=== PATIENT | female | born 1960 | race Caucasian/White ===

== ENCOUNTER → 2017-05-11 | Outpatient (CLI) | payer MEDICARE, OTHER ==
--- NOTE | 2017-05-11 14:19 | CT ---
EXAMINATION TYPE: CT sinus wo con DATE OF EXAM: 05/11/2017 COMPARISON: NONE HISTORY: Chronic sinusitis CT DLP: 630 mGycm. Automated Exposure Control for Dose Reduction was Utilized. TECHNIQUE: CT scan of the sinuses is performed without contrast, axial images are obtained, coronal r eformatted images are also reviewed. FINDINGS: The paranasal sinuses including the frontal, ethmoid, sphenoid, and maxillary sinuses bila terally are well-aerated minimal ethmoidal mucosal thickening. The ostiomeatal complex is patent kendra aterally on the coronal images. Bilateral gabrielle bullosa noted. Visualized portion of mastoid air cells show no abnormal opacification. The globes are intact bilate rally. IMPRESSION: 1. Minimal chronic ethmoidal sinusitis.
== END | disposition home or self-care (01) ==
LOC: RADCTMAIN 12:00
PROVIDERS: ATTEND Family Medicine
DX: J32.2 Chronic ethmoidal sinusitis (principal)
CPT/HCPCS: 70486

== ENCOUNTER → 2017-05-24 | Outpatient (CLI) | payer MEDICARE, OTHER ==
--- NOTE | 2017-05-24 15:59 | XR ---
EXAMINATION TYPE: XR cervical spine limited DATE OF EXAM: 05/24/2017 COMPARISON: NONE HISTORY: Pain TECHNIQUE: 3 views are submitted. FINDINGS: The odontoid is intact. There are no compression deformities. The prevertebral soft tissue structur es are within normal limits. Severe degenerative disc disease C5-C6 with moderate to severe changes C4-5 and C6-C7. Facet arthropathy at multiple levels. IMPRESSION: 1. Multilevel moderate to severe degenerative disc disease consider MRI follow-up..
--- NOTE | 2017-05-24 16:00 | XR ---
EXAMINATION TYPE: XR thoracic spine 2V DATE OF EXAM: 05/24/2017 COMPARISON: NONE HISTORY: Chronic pain Alignment is anatomic. There is no compression deformities. Hypertrophic changes are seen anteriorly at all levels. There is mild multilevel degenerative disc disease. Slight curvature the spine may be positional. IMPRESSION: 1. Mild multilevel degenerative disc disease.
--- NOTE | 2017-05-24 16:01 | XR ---
EXAMINATION TYPE: XR pelvis AP view DATE OF EXAM: 05/24/2017 COMPARISON: NONE HISTORY: Chronic pain The osseous structures are intact and the joint spaces are preserved. No acute fracture is seen. Vi sualized bowel gas pattern is nonspecific. Hypertrophy of the acetabulum noted. IMPRESSION: 1. No acute fracture. 2. 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
== END | disposition home or self-care (01) ==
LOC: RADXRMAIN 15:36
PROVIDERS: ATTEND Chiropractor
DX: M50.322 Other cervical disc degeneration at C5-C6 level (principal); M51.34 Other intervertebral disc degeneration, thoracic region; M12.859 Other specific arthropathies, not elsewhere classified, unspecified hip; M99.01 Segmental and somatic dysfunction of cervical region; M99.02 Segmental and somatic dysfunction of thoracic region; M99.03 Segmental and somatic dysfunction of lumbar region
CPT/HCPCS: 72040; 72070; 72170

== ENCOUNTER 2017-06-29 15:55 | Emergency (ER) | payer MEDICARE, OTHER ==
[2017-06-29 17:21] LABS: Appearance,Urine Clear (Clear); Bilirubin,Urine Negative (Negative); Blood,Urine Negative (Negative); Color,Urine Yellow; Glucose,Urine (UA) Negative (Negative); Ketones,Urine Negative (Negative); Leukocyte Esterase,Urine Negative (Negative); Nitrite,Urine Negative (Negative); PH, Urine 5.5 (5.0-8.0); Protein,Urine Negative (Negative); Urobilinogen,Urine <2.0 mg/dL (<2.0)
--- NOTE | 2017-06-29 17:37 | XR ---
EXAMINATION TYPE: XR lumbar spine 2 or 3V DATE OF EXAM: 06/29/2017 COMPARISON: NONE HISTORY: Low back pain TECHNIQUE: 3 views FINDINGS: Vertebra have fairly normal spacing and alignment. Posterior loose are intact. There is mil d atheromatous change in the abdominal aorta. Sacroiliac joints appear intact. IMPRESSION: Negative lumbar spine exam. No fracture.
[2017-06-29] MEDS ORDERED: IBUPROFEN 600 MG TAB PO STA (17:38)
--- NOTE | 2017-06-29 17:50 | ED ---
General Adult HPI - General Chief complaint: Back Pain/Injury Stated complaint: Back Pain Time Seen by Provider: 06/29/17 16:45 Source: patient, RN notes reviewed Mode of arrival: ambulatory Limitations: language barrier - History of Present Illness Initial comments: Patient is a 56-year-old female who presents emergency room today with a chief complaint of low back pain. Patient does admit that there is no specific injury or trauma. States as the day is gone she's been having increased pain or back. Denies any saddle anesthesia. Denies any lumbar radiculopathy. Patient does be to history of some low back pain. She states she's also had infections before. She states she is worried about crystals in her urine. Patient doesn't certain movements. She states not taken anything for pain today. She denies any other complaints or associated symptoms. Patient denies any recent fever, chills, shortness of breath, chest pain, abdominal pain, nausea or vomiting, numbness or tingling, dysuria or hematuria, constipation or diarrhea, headaches or visual changes, or any other complaints. - Related Data Home Medications Medication Instructions Recorded Confirmed Apixaban [Eliquis] 2.5 mg PO BID 06/29/17 06/29/17 Carvedilol [Coreg] 3.125 mg PO BID 06/29/17 06/29/17 PARoxetine HCL [Paxil] 30 mg PO DAILY 06/29/17 06/29/17 lamoTRIgine [LaMICtal] 25 mg PO BID 06/29/17 06/29/17 lamoTRIgine [LaMICtal] 100 mg PO BID 06/29/17 06/29/17 Previous Rx's Medication Instructions Recorded Cyclobenzaprine [Flexeril] 10 mg PO TID #20 tab 06/29/17 Ibuprofen [Motrin] 600 mg PO Q6HR PRN #40 day 06/29/17 Allergies Allergy/AdvReac Type Severity Reaction Status Date / Time Penicillins Allergy Anaphylaxis Verified 06/29/17 16:16 Review of Systems ROS Statement: Those systems with pertinent positive or pertinent negative responses have been documented in the HPI. ROS Other: All systems not noted in ROS Statement are negative. Past Medical History Past Medical History: Atrial Fibrillation, CVA/TIA, Hypertension History of Any Multi-Drug Resistant Organisms: None Reported Past Surgical History: No Surgical Hx Reported Additional Past Surgical History / Comment(s): cataract Past Psychological History: Anxiety Smoking Status: Never smoker Past Alcohol Use History: None Reported Past Drug Use History: None Reported General Exam - General Exam Comments Initial Comments: General: The patient is awake and alert, in no distress, and does not appear acutely ill. Eye: Pupils are equal, round and reactive to light, extra-ocular movements are intact. No nystagmus. There is normal conjunctiva bilaterally. No signs of icterus. Ears, nose, mouth and throat: There are moist mucous membranes and no oral lesions. Neck: The neck is supple, there is no tenderness or JVD. Cardiovascular: There is a regular rate and rhythm. No murmur, rub or gallop is appreciated. Respiratory: Lungs are clear to auscultation, respirations are non-labored, breath sounds are equal. No wheezes, stridor, rales, or rhonchi. Musculoskeletal: Normal appearance of the thoracic, lumbar spine with no step- offs forms. Patient has no tenderness midline. His have paravertebral tenderness lower lumbar from L4-L5 bilaterally. Pain reproduced with movements or twisting turning. Strength 5/5. Sensation intact. Pulses equal bilaterally 2 +. Neurological: A&O x 3. CN II-XII intact, There are no obvious motor or sensory deficits. Coordination appears grossly intact. Speech is normal. Skin: Skin is warm and dry and no rashes or lesions are noted. Psychiatric: Cooperative, appropriate mood & affect, normal judgment. Limitations: language barrier Course Vital Signs 06/29/17 16:08 Temperature 98.7 F Pulse Rate 101 H Respiratory 18 Rate Blood Pressure 116/74 O2 Sat by Pulse 97 Oximetry Medical Decision Making - Medical Decision Making Patient's x-ray reviewed is unremarkable. Urinalysis shows no evidence of infection. Results were discussed with the patient. Patient's pain is reproduced with certain movements. Her pain is felt to be musculoskeletal treated with muscle relaxer and anti-inflammatories. Patient is advised following up with family doctor over the next 2 days. Advised to return if symptoms increase worsen. - Lab Data Lab Results 06/29/17 Range/Units 17:10 Urine Color Yellow Urine Appearance Clear (Clear) Urine pH 5.5 (5.0-8.0) Ur Specific [place] 1.020 (1.001-1.035) Urine Protein Negative (Negative) Urine Glucose (UA) Negative (Negative) Urine Ketones Negative (Negative) Urine Blood Negative (Negative) Urine Nitrite Negative (Negative) Urine Bilirubin Negative (Negative) Urine Urobilinogen <2.0 (<2.0) mg/dL Ur Leukocyte Esterase Negative (Negative) Disposition Clinical Impression: Acute low back pain Disposition: HOME SELF-CARE Condition: Good Instructions: Acute Low Back Pain (ED) Additional Instructions: Please use medication as discussed. Please follow-up with family doctor in the next 2 days of symptoms have not improved. Please return to emergency room if the symptoms increase or worsen or for any other concerns. Prescriptions: Cyclobenzaprine [Flexeril] 10 mg PO TID #20 tab Ibuprofen [Motrin] 600 mg PO Q6HR PRN #40 day PRN Reason: Pain Referrals: Remigio Bradley MD [Primary Care Provider] - 1-2 days Time of Disposition: 17:49
[2017-06-29 23:33] VITALS: BP 118/65; PULSE 82; RESP 16; TEMP 96.9
== END 2017-06-29 17:59 | disposition home or self-care (01) ==
LOC: EC 15:55
DX: M54.5 Low back pain (principal); I48.91 Unspecified atrial fibrillation; I10 Essential (primary) hypertension; F41.9 Anxiety disorder, unspecified; Z79.01 Long term (current) use of anticoagulants; Z79.899 Other long term (current) drug therapy; Z88.0 Allergy status to penicillin
CPT/HCPCS: 72100; 81003; 87086; 99283

== ENCOUNTER 2019-01-09 07:20 | Day surgery (SDC) | payer MEDICARE, OTHER ==
[2019-01-05 13:34] VITALS: BMI 25.0
[~2019-01-09 07:20] MED LIST: LACTATED RINGERS 1,000 ML IV SCH; LIDOCAINE 1% 20 ML VIAL (10MG/ML) FOR IV START INTRADERMA PRN
[2019-01-09 07:56] VITALS: RESP 16; TEMP 97.3
[2019-01-09] MEDS ORDERED: PROPOFOL 10 MG/ML 20 ML VIAL IV ONE (08:08)
[2019-01-09] MEDS ORDERED: LIDOCAINE 1% INJ 10MG/ML (20 ML MDV) ONE (08:08)
[2019-01-09] MEDS ORDERED: GLYCOPYRROLATE 0.2 MG/ML 2 ML VIAL ONE (08:08)
--- NOTE | 2019-01-09 09:15 | P.PCN ---
Date of Procedure: 01/09/19 Description of Procedure: BRIEF HISTORY: 58-year-old female who presents for outpatient colonoscopy. The patient reports last colonoscopy was approximately 15 years ago. She reports at baseline she has 1 bowel movement daily without any blood. She did have an episode of diarrhea followed by bright red blood per rectum. No abdominal pain or family history of colon cancer reported. PROCEDURE PERFORMED: Colonoscopy with polypectomy. PREOPERATIVE DIAGNOSIS: Hematochezia, last colonoscopy 15 years ago, screening for malignant neoplasm of the colon. ESTIMATED BLOOD LOSS: Minimal. IV sedation per Anesthesia. PROCEDURE: After informed consent was obtained, the patient, was brought into the endoscopy unit. IV sedation was administered by Anesthesia under continuous monitoring. Digital rectal examination was normal. Initially the Olympus CF-190 flexible video colonoscope was then inserted in the rectum, gradually advanced into the cecum without any difficulty. Careful examination was performed as the scope was gradually being withdrawn. Ileocecal valve and the appendiceal orifice were visualized and appeared normal. Prep was excellent. Mucosa of the cecum, ascending colon, transverse colon, descending colon, sigmoid colon, and rectum appeared normal. The patient had a somewhat distended and redundant colon. Mild scattered diverticulosis. 2 diminutive 2 mm sessile sigmoid colon polyps removed with cold forceps. Mild internal hemorrhoids Retroflexion was performed in the rectum and no lesions were seen. The patient tolerated the procedure well. IMPRESSION: Normal-appearing colon from rectum to cecum. Mild scattered diverticulosis. Cold forceps polypectomy of 2 diminutive sigmoid polyps. Mild internal hemorrhoids. RECOMMENDATIONS: Findings of this examination were discussed with the patient. Okay for high- fiber diet. Okay to resume medications. Anticipate repeat colonoscopy in 5-10 years pending pathology from polypectomies. If further bleeding would recommend local hemorrhoidal care..
[2019-01-09 09:27] VITALS: BP 117/79; PULSE 104
== END 2019-01-09 09:52 | disposition home or self-care (01) ==
LOC: ORWHC2ENDO 07:20
PROVIDERS: ATTEND Internal Medicine
DX: Z12.11 Encounter for screening for malignant neoplasm of colon (principal); K63.5 Polyp of colon; K57.90 Diverticulosis of intestine, part unspecified, without perforation or abscess without bleeding; K64.8 Other hemorrhoids; Z87.891 Personal history of nicotine dependence; K21.9 Gastro-esophageal reflux disease without esophagitis; I10 Essential (primary) hypertension; I48.91 Unspecified atrial fibrillation; F41.9 Anxiety disorder, unspecified; F32.9 Major depressive disorder, single episode, unspecified; H91.90 Unspecified hearing loss, unspecified ear; Z79.01 Long term (current) use of anticoagulants; Z79.899 Other long term (current) drug therapy; Z88.0 Allergy status to penicillin
CPT/HCPCS: 88305; 45380; J2001; J2704

== ENCOUNTER → 2020-07-26 | Outpatient (CLI) | payer MEDICARE, OTHER ==
--- NOTE | 2020-07-26 18:12 | MR ---
MR brain without contrast HISTORY: Memory loss and stroke Multiplanar multisequence imaging through the brain, no comparisons There is no restricted diffusion. Cerebellopontine angles, corpus callosum, pituitary, cervical medul raphael junction are normal. There are normal vascular flow voids. There is no hemorrhage or hydrocephal us. Some scattered periventricular hyperintensities are present within the deep white matter on inver lucas recovery T2-weighted sequences, approximately 4 5 foci, foci within the anterior limb of the int ernal capsule on the right appears somewhat serpiginous and may be related to [place]chow-[place] spaces. F ocus adjacent to the posterior horn the right lateral ventricle measures 7.4 mm, overlying cortex at this level within the parietal lobe shows a small area of gliosis. The orbits show symmetric appearan ce. IMPRESSION: Nonspecific white matter and overlying cortical focus of hyperintensity could be related to prior trauma, cerebrovascular accident. Additional nonspecific findings above.
== END | disposition home or self-care (01) ==
LOC: RADMRIMAIN 08:13
PROVIDERS: ATTEND Family Medicine
DX: G93.89 Other specified disorders of brain (principal); I63.9 Cerebral infarction, unspecified; Z86.73 Personal history of transient ischemic attack (TIA), and cerebral infarction without residual deficits
CPT/HCPCS: 70551

== ENCOUNTER → 2023-12-27 | Outpatient (CLI) | payer MEDICARE, OTHER ==
--- NOTE | 2023-12-27 15:37 | CT ---
EXAMINATION TYPE: CT chest wo con CT DLP: 368 mGycm, Automated exposure control for dose reduction was used. DATE OF EXAM: 12/27/2023 3:26 PM COMPARISON: None CLINICAL INDICATION:Female, 63 years old with history of R91.1 SOLITARY PULMONARY NODULE; PHH, nodule s TECHNIQUE: Multiple axial images were obtained through the chest. Sagittal and coronal reformats were created for review. Contrast used: mL of (None if empty) Oral contrast used: (None if empty) FINDINGS: LUNGS/ PLEURA: Centrilobular emphysema changes throughout the lungs Right middle lobe 3 mm nodule ser ies 3 image 35. Left lower lobe 4 mm pulmonary nodule series 3 image 50. No focal consolidation, pneu mothorax or pleural effusion. AIRWAY: Patent and unremarkable. HEART: Size within normal limits. MEDIASTINUM: No gross evidence of adenopathy. Small hiatal hernia. VASCULATURE: No aortic aneurysm. MUSCULOSKELETAL: No acute osseous abnormalities SOFT TISSUES/LYMPH NODES: Unremarkable. LOWER NECK: No significant findings. UPPER ABDOMEN: No significant findings. IMPRESSION: 1. No clinically significant pulmonary nodules. Yearly low-dose lung cancer screening recommended. 2. [id number] emphysema.
== END | disposition home or self-care (01) ==
LOC: RADCTMAIN 14:49
PROVIDERS: ATTEND Family Medicine
DX: R91.1 Solitary pulmonary nodule (principal); J43.9 Emphysema, unspecified
CPT/HCPCS: 71250